=== PATIENT | male | born 1950 | race Caucasian/White ===

== ENCOUNTER 2017-04-14 19:40 | Inpatient (IN) | payer OTHER ==
[~2017-04-14] VITALS: Ht 190.5 cm; Wt 99.0 kg
[2017-04-14 19:45] VITALS: BP 152/92; PULSE 82; RESP 16; O2SAT 99
--- NOTE | 2017-04-14 20:11 | ED.REPORT ---
HPI-Chest Pain 40 and Over Date of Service Apr 14, 2017 ED Provider: Dr. Parra Pt is a 66 year old male with a hx of heartburn and dyslipidemia with elevated triglycerides sent to the ED by his die setter after having an abnormal stress test done yesterday. He does complain of slight dyspnea on exertion, a bit of a flutter, and slight left sided chest pain on and off for the past few years. The pt's PCP got the stress test due to the SOB, chest pain and pains in his arm. He denies current chest pain, fever, numbness, weakness, abdominal pain , vomiting blood, black stool, or any other symptoms at this time. Pt takes Lipitor and 81 mg Aspirin daily. Nursing Notes Stated Complaint: STRESS TEST RESULTS/SENT FROM CARDIOLOGY Chief Complaint: Chest Pain Nursing Notes Reviewed: Yes Allergies: Coded Allergies: No Known Allergies (Unverified , 04/14/17) Scheduled ([theracurmin]) 60 MG PO DAILY Aspirin (Aspirin) 81 Mg Tablet 81 MG PO DAILY Atorvastatin (Lipitor) 20 Mg Tablet 20 MG PO DAILY Fenofibrate (Fenofibrate) 120 Mg Tablet 120 MG PO DAILY Multivitamin (Multi Vitamin Daily) 1 Each Tablet 1 EACH PO DAILY [place]-3/Dha/Epa/Fish Oil (Fish Oil 1,600 mg/5 ml Liquid) 1,600 Mg-500 Mg-800 Mg/ 5 Ml Liquid 1 TSP PO DAILY Omeprazole (Omeprazole) 20 Mg Tablet.dr 20 MG PO DAILY General Time Seen by MD: 20:11 Chief Complaint Shortness of breath Hx Obtained From: Patient Arrived By: Walk-in Sudden in Onset?: No Onset Occurred: Onset unknown Symptom Duration: Intermittent Location: : Chest left Quality: Painful Severity: Current: No pain currently Severity: Maximum: Mild Recent Healthcare: No recent hospitalization, Recent doctor visit Similar Sx Previous: No Past Medical History Past Medical History Heartburn Dyslipidemia with elevated triglycerides Prescription for Viagra has not used recently Past Surgical History knee surgery Family History Father had a heart attack at 65 and of CHF at 92 Smoking History Former Smoker Social History Alcohol Use: 1-3 per week (5-6 per week) Ambulatory Status Independent Review of Systems Constitutional: Denies: Fever Respiratory: Reports: Shortness of breath Cardiovascular: Reports: Chest pain GI: Denies: Abdominal pain, Bloody/tarry stool, Hematemesis, Hematochezia, Vomiting Neurologic: Denies: Numbness, Weakness Complete sys rev & neg: except as marked. Physical Exam Initial Vital Signs Vital Signs (First) Date Time Temp Pulse Resp B/P Pulse Ox O2 Delivery O2 Flow Rate FiO2 04/14/17 19:45 36.4 82 16 152/92 99 Room Air Initial VS: Reviewed Head / Eyes: Atraumatic, Normocephalic, PERRL ENT: Mucous membranes moist, Conjunctiva normal, No scleral icterus Extremities: Vascular intact, Neuro intact, No swelling, No tenderness Skin: Warm, Dry, No cyanosis Neurologic: Alert, Oriented, Nonfocal Psychiatric: Mood/affect normal, Behavior normal, Normal thought content General/Constitutional: Awake, Alert, No acute distress, Well appearing Respiratory / Chest: Breath sounds NL, Breath sounds = bilat, No respiratory distress, No rales, No rhonchi, No wheezing, No stridor, No chest tenderness Cardiovascular: Heart rate NL, Regular rhythm, Heart sounds NL, No gallop, No murmurs, No rubs, Peripheral circulation NL, Pulses = bilaterally, No gross BP differential Abdomen: Atraumatic, Soft, Non-tender, BS normoactive Interpretation & Diagnostics Lab Results Interpretation Result Diagram: 04/14/17200904/14/172009 Test 04/14/17 20:10 White Blood Count 6.3th/mm3 (3.8-10.1) Red Blood Count 4.62mil/mm3 (4.40-5.80) Hemoglobin 14.1g/dL (13.8-17.2) Hematocrit 41.5% (41.0-50.0) Mean Corpuscular Volume 89.8fL (81-100) Mean Corpuscular Hemoglobin 30.5pg (27.0-35.0) Mean Corpuscular Hemoglobin Concent 34.0% (32.0-37.0) Red Cell Distribution Width 14.0% (12.3-15.4) Platelet Count 202bil/L (150-400) Neutrophils (%) (Auto) 60.3% (40-74) Lymphocytes (%) (Auto) 26.1% (14-46) Monocytes (%) (Auto) 8.2% (4-12) Eosinophils (%) (Auto) 4.1% (0-5) Basophils (%) (Auto) 1.0% (0-3) Activated Partial Thromboplast Time 26.4sec (22.8-33.0) Sodium Level 139mEq/L (134-144) Potassium Level 4.2mEq/L (3.5-5.2) Chloride Level 100mEq/L (97-108) Carbon Dioxide Level 22mmol/L (18-29) Blood Urea Nitrogen 20mg/dL (8-27) Creatinine 1.02mg/dL (0.76-1.27) Estimat Glomerular Filtration Rate 77mL/min (>59) Glucose Level 87mg/dL (60-99) Calcium Level 9.2mg/dL (8.5-10.1) Total Bilirubin 0.3mg/dL (0.0-1.2) Aspartate Amino Transf (AST/SGOT) 28U/L (0-50) Alanine Aminotransferase (ALT/SGPT) 21U/L (0-44) Alkaline Phosphatase 45U/L (25-160) Total Protein 7.7g/dL (6.4-8.4) Albumin 4.5g/dL (3.4-5.0) ECG Interpretation ECG Interpretation: No acute ST segment changes. Time: 20:09 Interpreted by: ED physician Normal ECG Interpretation: Normal rate (75), Normal sinus rhythm X-Ray Chest Interpretation Chest Xray Interpretation: IMPRESSION: No acute cardiopulmonary findings. Dictated by: Adelia Escalera M.D. on 04/14/2017 at 20:48 View: Portable, 1 view Interpretation / Wet Read by: Interpret - Radiologist Re-Eval/Medical Decision Med Decision/Clinical Course 66-year-old male with chest pain and dyspnea referred us secondary to a grossly abnormal stress test yesterday. He is presently symptom free. At the request of Dr. Horn, the patient is admitted and heparinized for probable cardiac catheterization tomorrow. Time of Eval: 21:29 Patient Status: Condition improved Re-Evaluation/Progress Note: Discussed plan for admission. Pt understands and agrees with plan. Consultation : Referral / Consult Name: Dami Geronimo MD Consulted With: Hospitalist Call Returned at: 21:03 Assistant Men'S Soccer Coach: Will see patient, Agrees with plan, Accepts admit Counseled Regarding: Diagnosis, Lab results, Need for follow-up, When/why to return to ED Discharge & Departure Primary Impression: Abnormal stress test Disposition: ADMITTED TO HOSPITAL Discharge Condition All VS Reviewed: Yes Condition: Improved Referrals: Cinthia Tafoya PA-C (PCP) Jackie Horn MD Attestation Portions of this note were transcribed by Ngozi Ruffin. I, Dr. Parra personally performed the history, physical exam and medical decision-making; I reviewed and confirmed the accuracy of the information in the transcribed note. Signed by : Yon Savage, 04/14/2017 at 2128. copies to: Cinthia Tafoya PA-C; Jackie Horn MD, Donald L MD Apr 14, 2017 20:11 NGOZI RUFFIN Apr 14, 2017 20:49
[2017-04-14 20:24] LABS: EOSINOPHILS % (AUTO) 4.1 % (0-5); MONOCYTES % (AUTO) 8.2 % (4-12); Mean Corpuscular Hemoglobin 30.5 pg (27.0-35.0); Mean Corpuscular Volume 89.8 fL (81-100); NEUTROPHILS % (AUTO) 60.3 % (40-74); Platelet Count 202 bil/L (150-400)
--- NOTE | 2017-04-14 20:49 | DRSVH ---
PROCEDURE: X-RAY CHEST ONE VIEW, PORTABLE ([id number]) INDICATIONS: abnormal stress test TECHNIQUE: One view of the chest was acquired. COMPARISON: None. FINDINGS: Surgical changes and devices: None. Lungs and pleura: No pleural effusions or pneumothorax. Lungs are clear. Mediastinum: Mediastinal contours appear normal. Heart size is normal. Bones and chest wall: No suspicious bony lesions. Overlying soft tissues appear unremarkable. IMPRESSION: No acute cardiopulmonary findings. Dictated by: Adelia Escalera M.D. on 04/14/2017 at 20:48 Approved by: Adelia Escalera M.D. on 04/14/2017 at 20:48
[2017-04-14] MEDS ORDERED: Heparin 5,000 Unit/mL Inj IVPUSH ONE (20:50)
[2017-04-14 21:03] LABS: Magnesium 1.5 mg/dL (1.6-2.6); TROPONIN T < 0.010 ug/L (0.0-0.011)
[2017-04-14] MEDS ORDERED: Polyethylene Glycol (PEG) 17 Gm Powder PO PRN (21:10)
[2017-04-14] MEDS ORDERED: Senna-Docusate 8.6-50 mg Tablet PO PRN (21:10)
[2017-04-14] MEDS ORDERED: Ondansetron 2 mg/mL 2 mL Inj IVPUSH PRN (21:10)
[2017-04-14] MEDS ORDERED: Alum-Mag Hydrox-Simeth 30 mL Suspension PO PRN (21:10)
[2017-04-14] MEDS ORDERED: Heparin 25K Unit/500mL 0.45 NS 25,000 UNIT in IV Premix 1 EACH IV SCH (21:10)
[2017-04-14] MEDS ORDERED: Atropine 1 mg/10 mL (Code) Syringe IVPUSH PRN (21:10)
[2017-04-14] MEDS: 0.9% Sodium Chloride 1,000 ML IV SCH (21:37)
[2017-04-14 21:55] VITALS: BP 149/67; PULSE 83; RESP 18; O2SAT 97
[2017-04-14 22:10] VITALS: BP 125/67; PULSE 83; RESP 18; O2SAT 97
[2017-04-14 22:39] LABS: Creatine Kinase 167 U/L (21-232); Magnesium 1.6 mg/dL (1.6-2.6)
[2017-04-14] MEDS ORDERED: THERACURMIN PO (22:44)
[2017-04-14] MEDS ORDERED: ATOR20TA PO (22:44)
[2017-04-14] MEDS ORDERED: FENO120T5 PO (22:44)
[2017-04-14] MEDS ORDERED: OMEG1600 PO (22:44)
[2017-04-14] MEDS ORDERED: OMEP20TA86 PO (22:44)
[2017-04-14] MEDS ORDERED: ASPI-973 PO (22:44)
[2017-04-14] MEDS ORDERED: MULT-1018 PO (22:45)
--- NOTE | 2017-04-14 23:09 | PCM.HPMED ---
Subjective Date of Service Apr 14, 2017 Primary Provider: Admitting Physician: Dami Geronimo MD Primary Care Physician: Cinthia Tafoya PA-C Attending Physician: Dami Geronimo MD Admit Status: From the Emergency Department, Full Admit, [facility] Telemetry Chief Complaint: Abnormal stress test as outpatient History of Present Illness: Jean Marie Jimenes is a 66 year old male with Hyperlipidemia and GERD who sent to [facility] emergency department by his client support analyst after having an abnormal stress test done yesterday. He does complain of slight dyspnea on exertion, a bit of a flutter, and slight left sided chest pain on and off for the past few years. His PCP ordered the stress test due to these symptoms and also due to his strong family history of premature heart disease. He denies current chest pain, fever, numbness, weakness, abdominal pain, vomiting blood, black stool. Medications reviewed, Lipitor and Fenofibrate and 81 mg Aspirin daily. Case discussed with Dr Parra, plan to admit for cardiac cath tomorrow. Dr Horn was notified who recommended Heparin drip. Patient troponin negative and no symptoms currently Review of Systems: Pertinent positives as noted in HPI. All other systems were reviewed and are negative Allergies Coded Allergies: No Known Allergies (Unverified , 04/14/17) Home Medications Atorvastatin 20 mg daily Fenofibrate 120 mg daily Aspirin 81 mg daily Omeprazole 20 mg daily Multi vitamin PMH Hyperlipidemia . Surgical History Right knee surgery Family History Two brothers from heart attack in their 50s Father had Myocardial infarction 60s then developed heart failure Social History Hx Alcohol Use: Yes (glass of wine a day) Hx Substance Use: No Hx Tobacco Use: Yes Smoking Status: Former Smoker Living Arrangement: with Family (with ) Exam Vital Signs Vital Sign - Last Date Time Temp Pulse Resp B/P Pulse Ox O2 Delivery O2 Flow Rate FiO2 04/14/17 22:10 37.1 83 18 125/67 97 Room Air Exam General: Alert, Oriented X3, Cooperative, No acute Distress Eyes: PERRLA, Scleral Anicteric Mouth: Mouth Normal, Mucous Membranes Moist/[place] Neck: Supple, no Thyromegaly, trachea central. Chest & Lungs: Clear to auscultation & percussion, No adventitious breath sounds, no crackles, no wheeze Cardiovascular: Normal S1, Normal S2, No Murmurs/Rubs/Gallops, Regular Rate/ Rhythm, Murmur, Other (No JVD, no peripheral edema) Pulses: Radial (present and equal), Dorsalis Pedi (present and equal) Abdomen: Soft, Non-tender, Non-distended, Normoactive bowel tones. Musculoskeletal: Unremarkable. Normal range of motion, no swollen or erythematous joints Extremities: No edema, no cyanosis, no clubbing. Skin: No rashes. Warm and dry, no erythematous areas Neurological: Grossly neurologically intact, Normal Speech, Sensation Intact Lymphatic: Lymph nodes Cervical and Axillary not palpable Lab and Diagnostics Labs Laboratory Tests Test 04/14/17 20:10 04/14/17 21:45 White Blood Count 6.3th/mm3 (3.8-10.1) Red Blood Count 4.62mil/mm3 (4.40-5.80) Hemoglobin 14.1g/dL (13.8-17.2) Hematocrit 41.5% (41.0-50.0) Mean Corpuscular Volume 89.8fL (81-100) Mean Corpuscular Hemoglobin 30.5pg (27.0-35.0) Mean Corpuscular Hemoglobin Concent 34.0% (32.0-37.0) Red Cell Distribution Width 14.0% (12.3-15.4) Platelet Count 202bil/L (150-400) Neutrophils (%) (Auto) 60.3% (40-74) Lymphocytes (%) (Auto) 26.1% (14-46) Monocytes (%) (Auto) 8.2% (4-12) Eosinophils (%) (Auto) 4.1% (0-5) Basophils (%) (Auto) 1.0% (0-3) Activated Partial Thromboplast Time 26.4sec (22.8-33.0) Sodium Level 139mEq/L (134-144) Potassium Level 4.2mEq/L (3.5-5.2) Chloride Level 100mEq/L (97-108) Carbon Dioxide Level 22mmol/L (18-29) Blood Urea Nitrogen 20mg/dL (8-27) Creatinine 1.02mg/dL (0.76-1.27) Estimat Glomerular Filtration Rate 77mL/min (>59) Glucose Level 87mg/dL (60-99) Calcium Level 9.2mg/dL (8.5-10.1) Magnesium Level 1.5mg/dL (1.6-2.6) 1.6mg/dL (1.6-2.6) Total Bilirubin 0.3mg/dL (0.0-1.2) Aspartate Amino Transf (AST/SGOT) 28U/L (0-50) Alanine Aminotransferase (ALT/SGPT) 21U/L (0-44) Alkaline Phosphatase 45U/L (25-160) Troponin T < 0.010ug/L (0.0-0.011) 0.010ug/L (0.0-0.011) Total Protein 7.7g/dL (6.4-8.4) Albumin 4.5g/dL (3.4-5.0) Total Creatine Kinase 167U/L (21-232) Creatine Kinase MB 4.0ng/mL (0.0-10.4) Creatine Kinase MB % % (0.0-5.0) Thyroid Stimulating Hormone (TSH) 6.360uIU/mL (0.450-4.500) Result Diagram: 04/14/17200904/14/172009 X-Rays, CTs and MRIs X-RAY CHEST ONE VIEW, PORTABLE 04/14 IMPRESSION: No acute cardiopulmonary findings. Dictated by: Adelia Escalera M.D. on 04/14/2017 at 20:48 Approved by: Adelia Escalera M.D. on 04/14/2017 at 20:48 Assessment & Plan Jean Marie Jimenes is a 66 year old male with Hyperlipidemia and GERD who sent to [facility] emergency department by his client support analyst after having an abnormal stress test 1. Unstable angina with Abnormal Stress test. Present on admission - monitor on telemetry - trending cardiac biomarkers - complete echo tomorrow - nothing by mouth for cardiac tomorrow - anticoagulations with Heparin drip 2 Hyperlipidemia, Chronic - continuing Atorvastatin - checking Lipids 3 GERD, Chronic - continue Protonix daily - Acetaminophen as needed for mild pain/fever/headache - Bowel regimen as needed - Antiemetic as needed Patient admitted under inpatient status with expected length of stay > 2 midnights for severity of present symptoms, complexities of treatment plan and risk for adverse event . Resuscitation Status: CPR: Attempt Resuscitation Dami Geronimo MD Apr 14, 2017 23:09
--- NOTE | 2017-04-14 23:15 | NUR ---
Arrival to room Arrival to room 3020 from ER via [facility] with at bedside. IVF infusing and Heparin gtt initiated per cardiac protocol at 1000units/hr. Med rec completed. A&O at this time and able to make needs known using call light.
[2017-04-15] VITALS (16 sets, daily range): BP systolic 107–151; BP diastolic 56–80; PULSE 46–97; RESP 13–18; O2SAT 96–99
[2017-04-15] MEDS: Sodium Chloride LOK Flush 10 mL Syringe IVFLUSH SCH ×2 (00:43→08:52)
[2017-04-15 03:02] LABS: EOSINOPHILS % (AUTO) 4.9 % (0-5); Mean Corpuscular Hemoglobin 31.4 pg (27.0-35.0); NEUTROPHILS % (AUTO) 49.9 % (40-74); Platelet Count 185 bil/L (150-400)
[2017-04-15 03:38] LABS: Creatine Kinase 155 U/L (21-232)
[2017-04-15] MEDS: Heparin Protocol Boluses IVPUSH PRN ×2 (03:48→11:09)
--- NOTE | 2017-04-15 06:27 | NUR ---
Heparin Drip Pts Ptt result was low at 43, Drip increased from 1000units/hr to 1050units/hr and was given a 1000unit bolus. This RN placed second 20ga IV in Pts right FA using sterile technique. Pt tolerated well.
[2017-04-15] MEDS ORDERED: Pantoprazole 20 mg ER24 Tablet PO SCH (08:30)
[2017-04-15] MEDS: 0.9% Sodium Chloride 1,000 ML IV SCH (09:27)
--- NOTE | 2017-04-15 10:55 | DRSVH ---
[facility] [address] [place] [address] Echocardiogram Report Name: DOMINGA YEBOAH te: 04/15/2017 Height: 75 in Hospital Exam Location: [facility] Weight: 218 lb Gender: Male BSA: 2.3 m2 : 1950 Age: 66 yrs BP: 145/74 mmHg Referring Physician: ANTOINETTE CADE Interpretation Summary The left ventricle is normal in size. The ejection fraction is estimated to be 60-65%. The right ventricle is normal size. The right ventricular systolic function is normal. There is mild to moderate mitral regurgitation. The ascending aorta is mildly enlarged. Procedure: A two-dimensional transthoracic echocardiogram with color flow and Doppler was performed. The study quality was technically adequate. The patient was in sinus bradycardia with heart rates between 52-66 bpm during the exam. Left Ventricle: The left ventricle is normal in size. Left ventricular wall thickness is at the upper limits of normal. Proximal septal thickening is noted. There is no echo evidence for significant left ventricular outflow tract obstruction. There is no thrombus. The ejection fraction is estimated to be 60-65%. There are no focal wall motion abnormalities. Spectral Doppler of the mitral valve shows a normal E/A wave ratio. The E/E' ratio is abnormal. Right Ventricle: The right ventricle is normal size. The right ventricular systolic function is normal. Atria: The left atrium is borderline dilated. Right atrial size is normal. The interatrial septum is intact with no evidence for an atrial septal defect. Mitral Valve: The mitral valve leaflets appear borderline thickened, but open well. There is mild mitral annular calcification. The mitral valve leaflets are slightly calcified. There is mild to moderate mitral regurgitation. Aortic Valve: The aortic valve is trileaflet. The aortic valve opens well. The aortic valve is slightly calcified. There is discrete nodular thickening of the non- coronary cusp. No aortic regurgitation is present. Tricuspid Valve: The tricuspid valve is normal. There is trace tricuspid regurgitation. Pulmonary artery pressures cannot be estimated because of the lack of a measurable TR jet velocity. Pulmonic Valve: The pulmonic valve leaflets are thin and pliable; valve motion is normal. There is trace pulmonic regurgitation. Great Vessels: The aortic root is normal size. The ascending aorta is mildly enlarged. The pulmonary artery is normal size. The IVC is of normal diameter and collapses greater than 50% with a sniff. This suggests a low right atrial pressure of 3 mm Hg. Pericardium/ Pleura There is no pericardial effusion. There is no pleural effusion. MMode/2D Measurements & Calculations IVSd: 1.0 cm LA A2 area RA long axis LVOT diam: 2.3 cm LVPWd: 0.98 cm AoV Openin.2 cm RA area Ao root diam: 3.5 cm LA A4 area asc Aorta Diam: 3.6 cm : 16.3 cm Ao Arch Diam (Prox LA length (vol) RA vol: 44.2 ml Trans): 3.1 cm RA LA vol: 68.1 ml : 19.4 mm2 LA vol index : 29.9 ml/m2 RVD1 (basal) TAPSE: 1.8 cm Doppler Measurements & Calculations Ao V2 max: 100.8 cm/secMV E max [place] MV E/A: 1.1 PA V2 max Ao max P.1 mmHg : 83.5 cm/sec Med Peak E' [place] : 56.5 cm/sec Ao mean P.2 mmHg MV A max [place] PA mean PG LVOT Max [place] : 73.0 cm/sec E/E' med: 17.2 : 0.92 mmHg : 91.3 cm/sec Lat Peak E' [place] MIKHAIL(I,D): 3.7 cm E/E' lat: 10.9 sev ratio: 0.94 E/e' average MV A dur: 0.13 sec MV dec time: 0.20 sec Ao V2 mean LV V1 max PG PA V2 mean : 70.4 cm/sec : 47.0 cm/sec Ao V2 VTI: 23.1 cmLV V1 VTI: 21.7 cm PA pr(Accel) : 27.6 mmHg MIKHAIL(V,D): 3.6 cm2 MIKHAIL indexed to BSA (cm^2/m^2): 1.6 Reading Physician:LORENE
--- NOTE | 2017-04-15 11:32 | PCM.DIMED ---
Discharge Instructions Date of Service Apr 15, 2017 Dates of Hospitalization Apr 14, 2017 at 21:37 Discharge Diagnosis Discharge Diagnosis #Chronic exertional dyspnea of unknown etiology # Abnormal exercise stress test # GERD # HLD Diet Discharge Diet: Low fat, Low Sodium, Heart Healthy Activity Discharge Activity: Limited until seen by PCP Call your provider Call your provider for: Fever or Chills, Shortness of breath, Bleeding, Chest pain, Vomitting, Excessive diarrhea, Weakness (unilateral) Patient Instructions Patient Instructions You were called in due to abnormal exercise stress test while undergoing workup for chronic exertional dyspnea of 6 month. After careful review of data Cardiology recommended outpatient evaluation for exertional dyspnea and further workup. We have setup a cardiology appointment for Friday 04/20 at 12 noon, at [facility] cardiology clinic with Dr Cardenas. Please continue aspirin for now. You also have subclinical hypothyroidism. Please get your thyroid function tests rechecked in 4 weeks. Follow-up Provider: Cinthia Tafoya PA-C Follow-up with PCP in: 2 weeks Provider: Lashay Aguayo MD Follow-up in: 1 week (Friday 04/20 at 12) Herb Chairez MD Apr 15, 2017 11:32
[2017-04-15] MEDS ORDERED: 0.9% Sodium Chloride 1,000 ML IV ONE (12:21)
--- NOTE | 2017-04-15 12:31 | PCM.CHPCAR ---
Consult Subjective Date of service Apr 15, 2017 Date of admit Apr 14, 2017 at 21:37 Provider Requesting Consult Requesting Provider: Herb Chairez MD Primary Care Physician Primary Care Physician: Cinthia Tafoya PA-C Chief Complaint SOB History of Present Illness This is a 66 y/o male who was informed to come into the ER because of a significantly abnormal regular ETT. I have personally reviewed the stress EKG. It showed multiple leads with profound ST depressions with occasionally ST upsloping segments and AVr AV1 ST elevation. He developed SOB but no typical angina. ST changes lingered for 5 minutes into the recovery. He was sent home right after the ETT. He was called by Dr. Horn after he reviewed the EKG yesterday and informed patient to come in. So far, he denies any chest pain and his serial troponins have been negative. He told his PCP last week about his Sx's which include exertional dyspnea while mowing his year or when hiking. He has had one event when he had throat discomfort during his exertional activities. His EKGs here have been unremarkable. His echo is pending. Review of Systems Review of Systems Otherwise, the rest of his 10 point review of systems are negative. PMH Past Medical History Hyperlipidemia Scheduled ([theracurmin]) 60 MG PO DAILY (Reported) Aspirin (Aspirin) 81 Mg Tablet 81 MG PO DAILY (Reported) Atorvastatin (Lipitor) 20 Mg Tablet 20 MG PO DAILY (Reported) Fenofibrate (Fenofibrate) 120 Mg Tablet 120 MG PO DAILY (Reported) Multivitamin (Multi Vitamin Daily) 1 Each Tablet 1 EACH PO DAILY (Reported) [place]-3/Dha/Epa/Fish Oil (Fish Oil 1,600 mg/5 ml Liquid) 1,600 Mg-500 Mg-800 Mg/ 5 Ml Liquid 1 TSP PO DAILY (Reported) Omeprazole (Omeprazole) 20 Mg Tablet.dr 20 MG PO DAILY (Reported) Current Inpatient Medications Current Medications Sodium Chloride 10 ml 10 ml GEM IVFLUSH Last administered on 04/15/17 08:52; Admin Dose 10 ML; Start 04/15/17 at 00:30 Sodium Chloride 1,000 ml @ 80 mls/hr [id number] IV Last administered on 04/15/17 09:27; Admin Dose 80 MLS/HR; Start 04/14/17 at 21:07 Aspirin 81 mg DAILY PO Last administered on 04/15/17 08:51; Admin Dose 81 MG; Start 04/15/17 at 08:30 Al Hydrox/Mg Hydrox/Simethicone 30 ml Q6H PRN PO; Start 04/14/17 at 21:10 Ondansetron HCl 4-8 mg prn nausea Q4H PRN IVPUSH; Start 04/14/17 at 21:10 Senna 1 tablet BID PRN PO; Start 04/14/17 at 21:10 Polyethylene Glycol 17 gm DAILY PRN PO; Start 04/14/17 at 21:10 Acetaminophen 325 mg Q6 PRN PO; Start 04/14/17 at 21:10 Nitroglycerin 0.4 mg Q5MIN PRN SL; Start 04/14/17 at 21:10 Morphine Sulfate 1-5 mg prn pain not relie... Q5M PRN IVPUSH; Start 04/14/17 at 21:10 Atropine Sulfate 0.5 mg Q5MIN PRN IVPUSH; Start 04/14/17 at 21:10 Heparin Sodium (Porcine) PER PROTOCOL PRN PRN IVPUSH Last administered on 11:09; Admin Dose 1,000 UNIT; Start 04/14/17 at 21:35 Atorvastatin Calcium 20 mg DAILY PO Last administered on 04/15/17 08:52; Admin Dose 20 MG; Start 04/15/17 at 08:30 Fenofibrate 145 mg DAILY PO Last administered on 04/15/17 08:52; Admin Dose 145 MG; Start 04/15/17 at 08:30 Pantoprazole 20 mg DAILY PO Last administered on 04/15/17 08:51; Admin Dose 20 MG; Start 04/15/17 at 08:30 Metoprolol Tartrate 12.5 mg BID PO Last administered on 04/15/17 11:08; Admin Dose 12.5 MG; Start 04/15/17 at 08:55 Allergies: Coded Allergies: No Known Allergies (Unverified , 04/14/17) Social History Hx Alcohol Use: Yes (glass of wine a day)Hx Substance Use: NoHx Tobacco Use: Yes Smoking Status: Former Smoker Living Arrangement: with Family (with ) Exam Vital Signs Vital Sign - Last Date Time Temp Pulse Resp B/P Pulse Ox O2 Delivery O2 Flow Rate FiO2 04/15/17 09:56 36.6 56 16 151/80 98 Room Air Intake and Output 04/14/17 04/14/17 04/15/17 Cumulative From/Thru 15:00 23:00 07:00 04/14/17 19:45 - 04/15/17 06:23 Intake Total 784 ml 784 ml Balance 784 ml 784 ml Intake IV Total 784 ml 784 ml General: Pleasant Cooperative Skin: Warm & dry to touch Head: Normocephalic Eye: EOMS intact Neck: No JVD Kussmaul's sign present Ears, Nose & Throat: Ears no gross abnormalities Chest: Clear auscultation w/o rales/wheeze Cardiac: Normal non-displaced apical impulse Normal S1 and S2 No murmurs Pulses: Pulses full/equal all extremities Abdomen: Soft, non-distended, non-tender Extremities: Warm w/o deformities,erythema noted Neurological: Alert & oriented Psychological: Affect & interaction appropriate Lab and Diagnostics Labs CBC Test 04/15/17 02:52 04/15/17 08:42 White Blood Count 6.1th/mm3 (3.8-10.1) Red Blood Count 4.20mil/mm3 (4.40-5.80) Mean Corpuscular Volume 91.0fL (81-100) Mean Corpuscular Hemoglobin 31.4pg (27.0-35.0) Mean Corpuscular Hemoglobin Concent 34.6% (32.0-37.0) Red Cell Distribution Width 14.0% (12.3-15.4) Platelet Count 185bil/L (150-400) Neutrophils (%) (Auto) 49.9% (40-74) Lymphocytes (%) (Auto) 32.9% (14-46) Monocytes (%) (Auto) 11.0% (4-12) Eosinophils (%) (Auto) 4.9% (0-5) Basophils (%) (Auto) 1.0% (0-3) Hemoglobin 13.9g/dL (13.8-17.2) Hematocrit 42.0% (41.0-50.0) CMP Test 04/14/17 20:10 04/14/17 21:45 04/15/17 02:52 Total Bilirubin 0.3mg/dL Aspartate Amino Transf (AST/SGOT) 28U/L Alanine Aminotransferase (ALT/SGPT) 21U/L Alkaline Phosphatase 45U/L Total Protein 7.7g/dL Albumin 4.5g/dL Magnesium Level 1.6mg/dL Sodium Level 140mEq/L Potassium Level 4.2mEq/L Chloride Level 105mEq/L Carbon Dioxide Level 22mmol/L Blood Urea Nitrogen 21mg/dL Creatinine 0.95mg/dL Estimat Glomerular Filtration Rate 84mL/min Glucose Level 97mg/dL Calcium Level 8.6mg/dL Total Creatine Kinase 155U/L Creatine Kinase MB 3.8ng/mL Creatine Kinase MB % % Troponin T 0.010ug/L Triglycerides Level 753mg/dL Cholesterol Level 192mg/dL LDL Cholesterol, Calculated 15.400mg/dL VLDL Cholesterol 150.600mg/dL HDL Cholesterol 26mg/dL Cholesterol/HDL Ratio 7.38 Thyroid Stimulating Hormone (TSH) 6.370uIU/mL Free Thyroxine 1.49ng/dL Result Diagram: 04/15/17 0842 04/15/17 0252 Additional Diagnostics: Echocardiogram Report Name: DOMINGA YEBOAH Martina Da te: 04/15/2017 Height: 75 in Hospital Exam Location: [facility] Weight: 218 lb Gender: Male BSA: 2.3 m2 : 1950 Age: 66 yrs BP: 145/74 mmHg Referring Physician: ANTOINETTE CADE Interpretation Summary The left ventricle is normal in size. The ejection fraction is estimated to be 60-65%. The right ventricle is normal size. The right ventricular systolic function is normal. There is mild to moderate mitral regurgitation. The ascending aorta is mildly enlarged. Procedure: A two-dimensional transthoracic echocardiogram with color flow and Doppler was performed. The study quality was technically adequate. The patient was in sinus bradycardia with heart rates between 52-66 bpm during the exam. Left Ventricle: The left ventricle is normal in size. Left ventricular wall thickness is at the upper limits of normal. Proximal septal thickening is noted. There is no echo evidence for significant left ventricular outflow tract obstruction. There is no thrombus. The ejection fraction is estimated to be 60-65%. There are no focal wall motion abnormalities. Spectral Doppler of the mitral valve shows a normal E/A wave ratio. The E/E' ratio is abnormal. Right Ventricle: The right ventricle is normal size. The right ventricular systolic function is normal. Atria: The left atrium is borderline dilated. Right atrial size is normal. The interatrial septum is intact with no evidence for an atrial septal defect. Mitral Valve: The mitral valve leaflets appear borderline thickened, but open well. There is mild mitral annular calcification. The mitral valve leaflets are slightly calcified. There is mild to moderate mitral regurgitation. Aortic Valve: The aortic valve is trileaflet. The aortic valve opens well. The aortic valve is slightly calcified. There is discrete nodular thickening of the non- coronary cusp. No aortic regurgitation is present. Tricuspid Valve: The tricuspid valve is normal. There is trace tricuspid regurgitation. Pulmonary artery pressures cannot be estimated because of the lack of a measurable TR jet velocity. Pulmonic Valve: The pulmonic valve leaflets are thin and pliable; valve motion is normal. There is trace pulmonic regurgitation. Great Vessels: The aortic root is normal size. The ascending aorta is mildly enlarged. The pulmonary artery is normal size. The IVC is of normal diameter and collapses greater than 50% with a sniff. This suggests a low right atrial pressure of 3 mm Hg. Pericardium/ Pleura There is no pericardial effusion. There is no pleural effusion. Assessment & Plan Problems: (1) Abnormal stress test Plan: His stress test would indicate that he might have left main artery disease since he had multiple leads with diffuse ST depression. However some were upsloping and he denied any CP. But given the progression of his exertional symptoms and stress EKG, I think we should have a more definite answer or assessment of his coronary anatomy and he has agreed to proceed with coronary angiogram. He understands the risks and benefits of the procedure. He will be tentatively scheduled for the procedure this afternoon. I explained to him that if indeed it is left main disease then he will need bypass surgery, but hopefully this is a false positive stress test or a simple lesion that will only require PCI/stenting. Status: Acute ICD Code: R94.39 (2) Unstable angina Status: Resolved ICD Code: I20.0 VTE Mechanical Devices: Intermittant Pneumatic CD Resuscitation Status: CPR: Attempt Resuscitation Time spent 50 minutes. Barrera Salinas MD Apr 15, 2017 12:30
[2017-04-15] MEDS ORDERED: Heparin 1,000 Units/500 mL NS Premix IV ONE (12:39)
[2017-04-15] MEDS ORDERED: Heparin 10,000 Unit/1,000 mL NS Premix IV ONE (12:40)
--- NOTE | 2017-04-15 12:58 | PCM.DC.MED ---
Discharge Summary Date of Service Apr 15, 2017 Dates of Hospitalization Date of Hospital Admission Apr 14, 2017 at 21:37 Date of Discharge: Apr 15, 2017 Providers: Admitting Physician: Dami Geronimo MD Primary Care Physician: Cinthia Tafoya PA-C Attending Physician: Dami Geronimo MD Diagnosis at Time of Discharge Diagnosis at Time of Discharge #Chronic exertional dyspnea of unknown etiology # Abnormal exercise stress test # GERD # HLD Consultations cardiology Dr Salinas reviewed chart Procedures XRay, CTs & MRIs X-RAY CHEST ONE VIEW, PORTABLE 04/14 IMPRESSION: No acute cardiopulmonary findings. Dictated by: Adelia Escalera M.D. on 04/14/2017 at 20:48 Approved by: Adelia Escalera M.D. on 04/14/2017 at 20:48 Cardiac Echo Impression echo 04/15 Interpretation Summary The left ventricle is normal in size. The ejection fraction is estimated to be 60-65%. The right ventricle is normal size. The right ventricular systolic function is normal. There is mild to moderate mitral regurgitation. The ascending aorta is mildly enlarged. Brief History This is a 66 y/o male who was informed to come into the ER because of a significantly abnormal regular ETT. I have personally reviewed the stress EKG. It showed multiple leads with profound ST depressions with occasionally ST upsloping segments and AVr AV1 ST elevation. He developed SOB but no typical angina. ST changes lingered for 5 minutes into the recovery. He was sent home right after the ETT. He was called by Dr. Horn after he reviewed the EKG yesterday and informed patient to come in. So far, he denies any chest pain and his serial troponins have been negative. He told his PCP last week about his Sx's which include exertional dyspnea while mowing his year or when hiking. He has had one event when he had throat discomfort during his exertional activities. His EKGs here have been unremarkable. His echo is pending. Hospital Course Jean Marie Jimenes is a 66 year old male with Hyperlipidemia and GERD who sent to [facility] emergency department by his material expediter after having an abnormal stress test 1. Unstable angina with Abnormal Stress test. Present on admission - monitor on telemetry - trending cardiac biomarkers - complete echo tomorrow - nothing by mouth for cardiac tomorrow - anticoagulations with Heparin drip 2 Hyperlipidemia, Chronic - continuing Atorvastatin - checking Lipids 3 GERD, Chronic - continue Protonix daily - Acetaminophen as needed for mild pain/fever/headache - Bowel regimen as needed - Antiemetic as needed Patient admitted under inpatient status with expected length of stay > 2 midnights for severity of present symptoms, complexities of treatment plan and risk for adverse event . Exam Vital Signs (Last) Date Time Temp Pulse Resp B/P Pulse Ox O2 Delivery O2 Flow Rate FiO2 04/15/17 09:56 36.6 56 16 151/80 98 Room Air Test 04/14/17 20:10 04/14/17 21:45 04/15/17 02:52 04/15/17 08:42 Total Bilirubin 0.3mg/dL (0.0-1.2) Aspartate Amino Transf (AST/SGOT) 28U/L (0-50) Alanine Aminotransferase (ALT/SGPT) 21U/L (0-44) Alkaline Phosphatase 45U/L (25-160) Total Protein 7.7g/dL (6.4-8.4) Albumin 4.5g/dL (3.4-5.0) Magnesium Level 1.6mg/dL (1.6-2.6) White Blood Count 6.1th/mm3 (3.8-10.1) Red Blood Count 4.20mil/mm3 (4.40-5.80) Mean Corpuscular Volume 91.0fL (81-100) Mean Corpuscular Hemoglobin 31.4pg (27.0-35.0) Mean Corpuscular Hemoglobin Concent 34.6% (32.0-37.0) Red Cell Distribution Width 14.0% (12.3-15.4) Platelet Count 185bil/L (150-400) Neutrophils (%) (Auto) 49.9% (40-74) Lymphocytes (%) (Auto) 32.9% (14-46) Monocytes (%) (Auto) 11.0% (4-12) Eosinophils (%) (Auto) 4.9% (0-5) Basophils (%) (Auto) 1.0% (0-3) Sodium Level 140mEq/L (134-144) Potassium Level 4.2mEq/L (3.5-5.2) Chloride Level 105mEq/L (97-108) Carbon Dioxide Level 22mmol/L (18-29) Blood Urea Nitrogen 21mg/dL (8-27) Creatinine 0.95mg/dL (0.76-1.27) Estimat Glomerular Filtration Rate 84mL/min (>59) Glucose Level 97mg/dL (60-99) Calcium Level 8.6mg/dL (8.5-10.1) Total Creatine Kinase 155U/L (21-232) Creatine Kinase MB 3.8ng/mL (0.0-10.4) Creatine Kinase MB % % (0.0-5.0) Troponin T 0.010ug/L (0.0-0.011) Triglycerides Level 753mg/dL (0-149) Cholesterol Level 192mg/dL (100-199) LDL Cholesterol, Calculated 15.400mg/dL (0-99) VLDL Cholesterol 150.600mg/dL HDL Cholesterol 26mg/dL (>39) Cholesterol/HDL Ratio 7.38 (0.0-4.4) Thyroid Stimulating Hormone (TSH) 6.370uIU/mL (0.450-4.500) Free Thyroxine 1.49ng/dL (0.82-1.77) Hemoglobin 13.9g/dL (13.8-17.2) Hematocrit 42.0% (41.0-50.0) Test 04/15/17 09:45 Activated Partial Thromboplast Time 49.3sec (22.8-33.0) Discharge Medications Discharge Medications ([theracurmin]) 60 MG PO DAILY (Reported) Aspirin (Aspirin) 81 Mg Tablet 81 MG PO DAILY (Reported) Atorvastatin (Lipitor) 20 Mg Tablet 20 MG PO DAILY (Reported) Fenofibrate (Fenofibrate) 120 Mg Tablet 120 MG PO DAILY (Reported) Multivitamin (Multi Vitamin Daily) 1 Each Tablet 1 EACH PO DAILY (Reported) [place]-3/Dha/Epa/Fish Oil (Fish Oil 1,600 mg/5 ml Liquid) 1,600 Mg-500 Mg-800 Mg/ 5 Ml Liquid 1 TSP PO DAILY (Reported) Omeprazole (Omeprazole) 20 Mg Tablet.dr 20 MG PO DAILY (Reported) Followup Plan Discharge Diet: Low fat, Low Sodium, Heart Healthy Discharge Activity: Limited until seen by PCP Patient Instructions You were called in due to abnormal exercise stress test while undergoing workup for chronic exertional dyspnea of 6 month. After careful review of data Cardiology recommended outpatient evaluation for exertional dyspnea and further workup. We have setup a cardiology appointment for Friday 04/20 at 12 noon, at [facility] cardiology clinic with Dr Cardenas. Please continue aspirin for now. You also have subclinical hypothyroidism. Please get your thyroid function tests rechecked in 4 weeks. Follow-up Provider: Cinthia Tafoya PA-C Follow-up with PCP in: 2 weeks Provider: Lashay Aguayo MD Follow-up in: 1 week (Friday 04/20 at 12) Herb Chairez MD Apr 15, 2017 12:58
--- NOTE | 2017-04-15 13:00 | NUR ---
off unit Pt was brought to wastewater analyst lab analyst. no s/s of distress
[2017-04-15] MEDS ORDERED: fentaNYL-PF 50 mCg/mL 2 mL Inj ONE ×2 (13:11→13:47)
--- NOTE | 2017-04-15 13:23 | NUR ---
Social Work: Attempted Initial Assessment/Readiness for Discharge D: EMR reviewed. Pt is a 66 y/o male admitted for unstable angina per H&P. 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 Per MD in AM multidisciplinary rounds, pt has completed echo, is pending laborer prestressed concrete results upon return from laborer prestressed concrete, and is pending a stool guaiac test. Per MD, pt is likely to discharge today if results from labs indicate pt is medically stable. Pt's insurance is [employer] and PCP is Cinthia Tafoya PA-C. Pt's spouse, Kasey Jimenes ([phone]) is listed as pt's NOK. Based on EMR, pt lives with his spouse in [place]. A: TBD P: SW will make continued attempts to conduct initial assessment to determine possible discharge needs. MICAELA Mims
[2017-04-15] MEDS ORDERED: Nitroglycerin 50,000 mcg/250 mL D5W Premix IV ONE (13:35)
[2017-04-15] MEDS ORDERED: 0.9% Sodium Chloride 100 ML ONE (13:37)
[2017-04-15] MEDS ORDERED: Adenosine Inj 20 ML IV ONE ×2 (13:37)
[2017-04-15] MEDS ORDERED: Heparin 1,000 Unit/mL 10 mL Inj ONE (13:38)
[2017-04-15] MEDS ORDERED: Atropine 1 mg/10 mL (Code) Syringe ONE (13:49)
--- NOTE | 2017-04-15 14:30 | NUR ---
FROM PROPERTY ECONOMIST. SEE FLOW SHEET
--- NOTE | 2017-04-15 14:58 | PCM.PNMED ---
Subjective Date of Service Apr 15, 2017 Subjective discussed case [address] Dr Salinas, he initially recommended discharging patient and arranged outpatient cardiology follow-up with Dr Cardenas for Wednesday at [facility] cardiology clinic. His saw patient again and eventually decided to do cardiac catheterization. Patient denies any chest pain. He states he has been having exertional dyspnea for the last 6 months Exam Vital Signs Vital Sign - Last Date Time Temp Pulse Resp B/P Pulse Ox O2 Delivery O2 Flow Rate FiO2 04/15/17 14:40 51 15 109/66 96 Room Air 04/15/17 09:56 36.6 Intake and Output 04/14/17 04/14/17 04/15/17 Cumulative From/Thru 15:00 23:00 07:00 04/14/17 19:45 - 04/15/17 06:23 Intake Total 784 ml 784 ml Balance 784 ml 784 ml Intake IV Total 784 ml 784 ml Exam General: Alert, Oriented X3, Cooperative, No acute Distress Eyes: PERRLA, Scleral Anicteric Mouth: Mouth Normal, Mucous Membranes Moist/[place] Neck: Supple, no Thyromegaly, trachea central. Chest & Lungs: Clear to auscultation & percussion, No adventitious breath sounds, no crackles, no wheeze Cardiovascular: Normal S1, Normal S2, No Murmurs/Rubs/Gallops, Regular Rate/ Rhythm, Murmur, Other (No JVD, no peripheral edema) Pulses: Radial (present and equal), Dorsalis Pedi (present and equal) Abdomen: Soft, Non-tender, Non-distended, Normoactive bowel tones. Musculoskeletal: Unremarkable. Normal range of motion, no swollen or erythematous joints Extremities: No edema, no cyanosis, no clubbing. Skin: No rashes. Warm and dry, no erythematous areas Neurological: Grossly neurologically intact, Normal Speech, Sensation Intact Lymphatic: Lymph nodes Cervical and Axillary not palpable IVs and Medications Medications Reviewed: Medications were reviewed in detail Lab and Diagnostics Result Diagram: 04/15/17 0842 04/15/17 0252 X-Rays, CTs and MRIs X-RAY CHEST ONE VIEW, PORTABLE 04/14 IMPRESSION: No acute cardiopulmonary findings. Dictated by: Adelia Escalera M.D. on 04/14/2017 at 20:48 Approved by: Adelia Escalera M.D. on 04/14/2017 at 20:48 Cardiac Echo Impressions echo 04/15 Interpretation Summary The left ventricle is normal in size. The ejection fraction is estimated to be 60-65%. The right ventricle is normal size. The right ventricular systolic function is normal. There is mild to moderate mitral regurgitation. The ascending aorta is mildly enlarged. Assessment & Plan Jean Marie Jimenes is a 66 year old male with Hyperlipidemia and GERD who sent to [facility] emergency department by his surveillance investigator after having an abnormal stress test 1. Unstable angina with Abnormal Stress test. Present on admission - monitor on telemetry - cardiac biomarkers negative - complete echo unremarkable as above - nothing by mouth for cardiac tomorrow -Was placed on Heparin drip overnight - discussed case with Dr Salinas in the morning, he initially recommended discharging patient and arranged outpatient cardiology follow-up with Dr Cardenas for Wednesday at [facility] cardiology clinic. His saw patient again and eventually decided to do cardiac catheterization. 2 Hyperlipidemia, Chronic - continuing Atorvastatin 3 GERD, Chronic - continue Protonix daily 4. Subclinical hypothyroidism -TSH 6.3 but normal free T4. Patient states his thyroid function test has been likes this for 2 years. I do not think it is contributing to his symptoms given symptom onset is only 6 months. Advised recheck TFT in 6-8 weeks. - Acetaminophen as needed for mild pain/fever/headache - Bowel regimen as needed - Antiemetic as needed Inpatient full code Disposition: Pending cardiac catheterization results. Probably discharge tomorrow VTE Mechanical Devices: Intermittant Pneumatic CD Resuscitation Status: CPR: Attempt Resuscitation Herb Chairez MD Apr 15, 2017 14:58
--- NOTE | 2017-04-15 15:37 | NUR ---
discharge received report from [facility] that pt will be discharging from that unit. All personal belongings were brought down to pt and hospitalist consulted with patient and brought his scripts.
[2017-04-15] MEDS ORDERED: Sodium Chloride LOK Flush 10 mL Syringe IVFLUSH SCH (16:30)
[2017-04-15] MEDS ORDERED: ATOR80TA PO (17:13)
[2017-04-15] MEDS ORDERED: NITR0.4T6 SL (17:13)
[2017-04-15] MEDS ORDERED: METO25TA6 PO (17:13)
--- NOTE | 2017-04-15 17:45 | CS94 ---
[address] [address] DIAGNOSTIC CARDIAC CATHETERIZATION PATIENT: DOMINGA YEBOAH : 1950 MR#: [id number] ADMIT: 04/14/2017 JOB ID: [id number] SERVICE DATE: 04/15/2017 PATIENT PROFILE: The patient is a 66-year-old male who experienced exertional dyspnea for the past few months. His exercise stress test was abnormal, consistent with myocardial ischemia. PROCEDURE: 1. Retrograde left heart catheterization. 2. Selective coronary angiography. 3. Fractional flow reserve to the distal left main and proximal left anterior descending. 4. Left ventricular angiogram. 5. Vascular closure device Perclose. COMPLICATION: None. METHOD: Retrograde left heart catheterization was performed from the right groin under 1% lidocaine local anesthesia using a 6-Citizen [place] sheath. Selective coronary angiogram was performed in multiple projections, including cranial and caudal angulations with hand injected contrast via JL5 and IM catheters. The 3DRC and JR4 catheters could not engage the right coronary ostium. Heparin 4,000 units was given. A 6-Citizen [place] JL4 guide was advanced to the left coronary ostium. Nitroglycerin 100 mcg was given intracoronary due to catheter-induced spasm at the origin of left main. Repeat angiogram showed improvement of the ostial lesion. A flow wire was then directed into the proximal left anterior descending artery. Adenosine was given infusion IV. FFR was measured. The procedure was terminated. A 6-Citizen [place] angulated pigtail catheter was advanced to the left ventricle and left ventricular angiogram was performed in the 30 degree CASTRO view by injecting contrast at a rate of 10 cc/second for 3 seconds. This catheter was withdrawn. Right femoral angiogram was performed before sheath removal. Hemostasis was achieved by using a Perclose device. The patient tolerated the procedure well. He was transferred to [facility] in good condition. TOTAL CONTRAST USED: 110 cc. FLUORO TIME: 6 minutes. RESULTS: 1. Selective coronary angiography: a. Left main coronary artery has 20% stenosis at its origin and 70% stenosis in the distal portion. b. The left anterior descending artery has moderate calcification in the proximal and mid portion with 30% stenosis in the proximal portion and 40% stenosis in the mid portion. c. The circumflex artery has minor irregularity. d. The dominant right coronary artery has minor 30% stenosis in the mid portion. 2. FFR of the distal left main and proximal left anterior descending artery is 0.71. 3. Left ventricular angiogram demonstrates normal left ventricular systolic function (visually estimated ejection fraction 60%). There is no wall motion abnormality. 4. There is no gradient across the aortic valve on catheter withdrawal. 5. Aortic pressure is 132/70 mmHg. Left ventricular pressure is 127/7 mmHg. 6. Left ventricular end diastolic pressure is 17 mmHg. CONCLUSION: 1. Severe distal left main stenosis. 2. 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 3. Left ventricular ejection fraction 60%. 4. LVEDP is 17 mmHg. PLAN: Dr. Salinas contacted Dr. Murray, cardiac surgeon at [facility]. He kindly agreed to see the patient tomorrow for urgent consultation for coronary artery bypass surgery. The patient will be treated with aspirin 81 mg once daily, metoprolol 12.5 mg twice daily and atorvastatin 80 mg once daily. MTDD
--- NOTE | 2017-04-15 18:40 | NUR ---
Pt discharged to home, ambulatory, accompanied by spouse. Pt's VSS, Rt groin site CDI, IVs discontinued. Pt given all discharge and follow up instructions and prescriptions. Pt had no further questions at time of d/c.
--- NOTE | 2017-04-16 17:20 | PCM.DC.MED ---
Discharge Summary Date of Service Apr 16, 2017 Dates of Hospitalization Date of Hospital Admission Apr 14, 2017 at 21:37 Date of Discharge: Apr 15, 2017 Providers: Admitting Physician: Dami Geronimo MD Primary Care Physician: Cinthia Tafoya PA-C Attending Physician: Dami Geronimo MD Diagnosis at Time of Discharge Diagnosis at Time of Discharge #Chronic exertional dyspnea of unknown etiology # Abnormal exercise stress test # GERD # HLD Consultations cardiology Dr Salinas reviewed chart Procedures XRay, CTs & MRIs X-RAY CHEST ONE VIEW, PORTABLE 04/14 IMPRESSION: No acute cardiopulmonary findings. Dictated by: Adelia Escalera M.D. on 04/14/2017 at 20:48 Approved by: Adelia Escalera M.D. on 04/14/2017 at 20:48 Cardiac Echo Impression echo 04/15 Interpretation Summary The left ventricle is normal in size. The ejection fraction is estimated to be 60-65%. The right ventricle is normal size. The right ventricular systolic function is normal. There is mild to moderate mitral regurgitation. The ascending aorta is mildly enlarged. Invasive Procedures SERVICE DATE: 04/15/2017 PATIENT PROFILE: The patient is a 66-year-old male who experienced exertional dyspnea for the past few months. His exercise stress test was abnormal, consistent with myocardial ischemia. PROCEDURE: 1. Retrograde left heart catheterization. 2. Selective angiography. 3. Fractional flow reserve to the distal left main and proximal left anterior descending. 4. Left ventricular angiogram. 5. Vascular closure device Perclose. COMPLICATION: None. METHOD: Retrograde left heart catheterization was performed from the right groin under 1% lidocaine local anesthesia using a 6-[place] sheath. Selective coronary angiogram was performed in multiple projections, including cranial and caudal angulation with hand injected contrast via JL5 and IM catheter. The 3DRC and JR4 could not engage the right coronary ostium. Heparin 4000 units was given. A 6-[place] JL4 guide was advanced to the left coronary ostium. Nitroglycerin 100 mcg was given intracoronary due to catheter-induced spasm. Repeat angiogram showed improvement of the ostial lesion. A flow wire was then directed into the proximal left anterior descending artery. Adenosine was given infusion IV. FFR was measured. The procedure was terminated. A 6-[place] angulated pigtail catheter was advanced to the left ventricle and left ventricular angiogram was performed in the 30 degree CASTRO view by injecting contrast at a rate of 10 cc/second for 3 seconds. This catheter was withdrawn. Right femoral angiogram was performed before sheath removal, hemostasis was achieved by using a Perclose device. The patient tolerated the procedure well. He was transferred to [facility] in good condition. TOTAL CONTRAST USED: 110 cc. FLUORO TIME: 6 minutes. RESULTS: 1. Selective angiography: a. Left main coronary artery has 20% stenosis at its origin and 80% stenosis in the distal portion. b. The left anterior descending artery has moderate calcification in the proximal and midportion with 30% stenosis in the proximal portion and 40% stenosis in the distal portion. c. The circumflex artery has minor irregularity. d. The dominant right coronary artery has minor 30% stenosis in the midportion. 2. FFR of the distal left main and proximal left anterior descending artery is 0.71. 3. Left ventricular angiogram demonstrates normal left ventricular systolic function (visually estimated ejection fraction 60%). There is no wall motion abnormality. 4. There is no gradient across the aortic valve on catheter withdrawal. 5. Aortic pressure is 132/70 mmHg. Left atrial pressure is 127/7 mmHg. 6. Left ventricular end diastolic pressure is 17 mmHg. CONCLUSION: 1. Severe distal left main stenosis. 2. 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 3. Left ventricular ejection fraction 60%. 4. LVEDP is 17 mmHg. PLAN: Dr. Salinas contacted DrJesús , cardiac surgeon at [facility]. He kindly agreed to see the patient tomorrow for urgent consultation for coronary artery bypass surgery. The patient will be treated with aspirin 81 mg once daily, metoprolol 12.5 mg twice daily and atorvastatin 80 mg once daily. Lashay Aguayo MD 04/15/17 3873 Brief History This is a 66 y/o male who was informed to come into the ER because of a significantly abnormal regular ETT. I have personally reviewed the stress EKG. It showed multiple leads with profound ST depressions with occasionally ST upsloping segments and AVr AV1 ST elevation. He developed SOB but no typical angina. ST changes lingered for 5 minutes into the recovery. He was sent home right after the ETT. He was called by Dr. Horn after he reviewed the EKG yesterday and informed patient to come in. So far, he denies any chest pain and his serial troponins have been negative. He told his PCP last week about his Sx's which include exertional dyspnea while mowing his year or when hiking. He has had one event when he had throat discomfort during his exertional activities. His EKGs here have been unremarkable. His echo is pending. Hospital Course Jean Marie Jimenes is a 66 year old male with Hyperlipidemia and GERD who sent to [facility] emergency department by his optician after having an abnormal stress test 1. Exertional dyspnea due to CAD s/p cath ,severe distal left main disease . Present on admission -Patient was offered direct transfer to [facility] for cardio thoracic surgical evaluation. He will be discharged and be seen outpatient. Cardiology discussed and arranged appointment with cardiac surgeon Dr Kimo Khan for . Patient started on aspirin, metoprolol 12.5 mg twice a day, increased atorvastatin from 20 to 80 mg, discontinued fenofibrate, nitroglycerin prescribed - cardiac biomarkers negative - complete echo unremarkable as above -Was placed on Heparin drip overnight 2 Hyperlipidemia, Chronic - continuing Atorvastatin as above 3 GERD, Chronic - continue Protonix daily 4. Subclinical hypothyroidism -TSH 6.3 but normal free T4. Patient states his thyroid function test has been likes this for 2 years. I do not think it is contributing to his symptoms given symptom onset is only 6 months. Advised recheck TFT in 6-8 weeks. - Acetaminophen as needed for mild pain/fever/headache - Bowel regimen as needed - Antiemetic as needed Inpatient full code Disposition: Discharged home Condition on discharge stable Exam Vital Signs (Last) Date Time Temp Pulse Resp B/P Pulse Ox O2 Delivery O2 Flow Rate FiO2 04/15/17 18:00 58 16 120/61 99 Room Air 04/15/17 09:56 36.6 Exam General: Alert, Oriented X3, Cooperative, No acute Distress Eyes: PERRLA, Scleral Anicteric Mouth: Mouth Normal, Mucous Membranes Moist/[place] Neck: Supple, no Thyromegaly, trachea central. Chest & Lungs: Clear to auscultation & percussion, No adventitious breath sounds, no crackles, no wheeze Cardiovascular: Normal S1, Normal S2, No Murmurs/Rubs/Gallops, Regular Rate/ Rhythm, Murmur, Other (No JVD, no peripheral edema) Pulses: Radial (present and equal), Dorsalis Pedi (present and equal) Abdomen: Soft, Non-tender, Non-distended, Normoactive bowel tones. Musculoskeletal: Unremarkable. Normal range of motion, no swollen or erythematous joints Extremities: No edema, no cyanosis, no clubbing. Skin: No rashes. Warm and dry, no erythematous areas Neurological: Grossly neurologically intact, Normal Speech, Sensation Intact Lymphatic: Lymph nodes Cervical and Axillary not palpable Test 04/14/17 20:10 04/14/17 21:45 04/15/17 02:52 04/15/17 08:42 Total Bilirubin 0.3mg/dL (0.0-1.2) Aspartate Amino Transf (AST/SGOT) 28U/L (0-50) Alanine Aminotransferase (ALT/SGPT) 21U/L (0-44) Alkaline Phosphatase 45U/L (25-160) Total Protein 7.7g/dL (6.4-8.4) Albumin 4.5g/dL (3.4-5.0) Hemoglobin A1c 5.5% (4.8-5.6) Magnesium Level 1.6mg/dL (1.6-2.6) White Blood Count 6.1th/mm3 (3.8-10.1) Red Blood Count 4.20mil/mm3 (4.40-5.80) Mean Corpuscular Volume 91.0fL (81-100) Mean Corpuscular Hemoglobin 31.4pg (27.0-35.0) Mean Corpuscular Hemoglobin Concent 34.6% (32.0-37.0) Red Cell Distribution Width 14.0% (12.3-15.4) Platelet Count 185bil/L (150-400) Neutrophils (%) (Auto) 49.9% (40-74) Lymphocytes (%) (Auto) 32.9% (14-46) Monocytes (%) (Auto) 11.0% (4-12) Eosinophils (%) (Auto) 4.9% (0-5) Basophils (%) (Auto) 1.0% (0-3) Sodium Level 140mEq/L (134-144) Potassium Level 4.2mEq/L (3.5-5.2) Chloride Level 105mEq/L (97-108) Carbon Dioxide Level 22mmol/L (18-29) Blood Urea Nitrogen 21mg/dL (8-27) Creatinine 0.95mg/dL (0.76-1.27) Estimat Glomerular Filtration Rate 84mL/min (>59) Glucose Level 97mg/dL (60-99) Calcium Level 8.6mg/dL (8.5-10.1) Total Creatine Kinase 155U/L (21-232) Creatine Kinase MB 3.8ng/mL (0.0-10.4) Creatine Kinase MB % % (0.0-5.0) Troponin T 0.010ug/L (0.0-0.011) Triglycerides Level 753mg/dL (0-149) Cholesterol Level 192mg/dL (100-199) LDL Cholesterol, Calculated 15.400mg/dL (0-99) VLDL Cholesterol 150.600mg/dL HDL Cholesterol 26mg/dL (>39) Cholesterol/HDL Ratio 7.38 (0.0-4.4) Thyroid Stimulating Hormone (TSH) 6.370uIU/mL (0.450-4.500) Free Thyroxine 1.49ng/dL (0.82-1.77) Hemoglobin 13.9g/dL (13.8-17.2) Hematocrit 42.0% (41.0-50.0) Test 04/15/17 09:45 Activated Partial Thromboplast Time 49.3sec (22.8-33.0) Discharge Medications Discharge Medications ([theracurmin]) 60 MG PO DAILY (Reported) Aspirin (Aspirin) 81 Mg Tablet 81 MG PO DAILY (Reported) Atorvastatin (Lipitor) 80 Mg Tablet 80 MG PO DAILY Prescribed by: JC SINGH MD Metoprolol Tartrate (Metoprolol Tartrate) 25 Mg Tablet 12.5 MG PO BID Prescribed by: JC SINGH MD Multivitamin (Multi Vitamin Daily) 1 Each Tablet 1 EACH PO DAILY (Reported) [place]-3/Dha/Epa/Fish Oil (Fish Oil 1,600 mg/5 ml Liquid) 1,600 Mg-500 Mg-800 Mg/ 5 Ml Liquid 1 TSP PO DAILY (Reported) Omeprazole (Omeprazole) 20 Mg Tablet.dr 20 MG PO DAILY (Reported) As needed Nitroglycerin SL (Nitroglycerin SL) 0.4 Mg Tab.subl 0.4 MG SL Q5M PRN PRN For Chest Pain Prescribed by: JC SINGH MD Followup Plan Disposition: Home Discharge Diet: Low fat, Low Sodium, Heart Healthy Discharge Activity: Limited until seen by PCP Patient Instructions You were called in due to abnormal exercise stress test while undergoing workup for chronic exertional dyspnea of 6 month. After careful review of data Cardiology recommended outpatient evaluation for exertional dyspnea and further workup. We have setup a cardiology appointment for Friday 04/20 at 12 noon, at [facility] cardiology clinic with Dr Cardenas. Please continue aspirin for now. You also have subclinical hypothyroidism. Please get your thyroid function tests rechecked in 4 weeks. Follow-up Provider: Cinthia Tafoya PA-C Follow-up with PCP in: 2 weeks Provider: Lashay Aguayo MD Follow-up in: 1 week (Friday 04/20 at 12) Time spent 40 minutes copies to: Cinthia Tafoya PA-C; Lashay Aguayo MD, Melaku MD Apr 16, 2017 17:20
== END 2017-04-15 15:30 | disposition home or self-care (01) | DRG 287 ==
LOC: SED 19:40 → OBSVTOIN 21:37 → MPC 21:37 → INTOOBSV 21:37
PROVIDERS: ADMIT Hospitalist; ATTEND Hospitalist
PROC: 4A023N7 Measurement of Cardiac Sampling and Pressure, Left Heart, Percutaneous Approach (ICD-10-PCS; principal; 2017-04-15)
PROC: B2111ZZ Fluoroscopy of Multiple Coronary Arteries using Low Osmolar Contrast (ICD-10-PCS; 2017-04-15)
PROC: B2151ZZ Fluoroscopy of Left Heart using Low Osmolar Contrast (ICD-10-PCS; 2017-04-15)
DX: I25.110 Atherosclerotic heart disease of native coronary artery with unstable angina pectoris (principal); R06.09 Other forms of dyspnea; E78.5 Hyperlipidemia, unspecified; K21.9 Gastro-esophageal reflux disease without esophagitis; E02 Subclinical iodine-deficiency hypothyroidism; Z87.891 Personal history of nicotine dependence; R94.39 Abnormal result of other cardiovascular function study; Z79.82 Long term (current) use of aspirin